=== PATIENT | female | born 1955 | race Caucasian/White ===

== ENCOUNTER 2017-02-28 18:46 | Emergency (ER) | payer OTHER ==
[2017-02-28 22:36] VITALS: BP 113/67
== END 2017-02-28 22:36 | disposition home or self-care (01) ==
LOC: ED 18:46
DX: S73.005A Unspecified dislocation of left hip, initial encounter (principal); X58.XXXA Exposure to other specified factors, initial encounter; Y93.89 Activity, other specified; Y92.89 Other specified places as the place of occurrence of the external cause; Y99.8 Other external cause status
CPT/HCPCS: J2270; J2405; J2704; Q0092